=== PATIENT | male | born 1990 | race Caucasian/White ===

== ENCOUNTER 2017-03-15 13:35 | Outpatient (CLI) | payer BC ==
[~2017-03-15] VITALS: Ht 188 cm; Wt 154.9 kg
[~2017-03-15 13:35] MED LIST: ALBU17AE23 IH; FLUT1DIS27 IH; HYDR-3730 PO; LORA10CA PO; METH4TAB PO; SLMFT1E INH; SULF1TAB35 PO
[2017-03-15 13:41] VITALS: BP 138/80
== END 2017-03-15 13:47 | disposition home or self-care (01) ==
LOC: PREOP 13:35
PROVIDERS: ATTEND Surgery Pediatric Surgery
DX: Z01.818 Encounter for other preprocedural examination (principal); Z11.2 Encounter for screening for other bacterial diseases; L05.91 Pilonidal cyst without abscess
CPT/HCPCS: 87081

== ENCOUNTER 2017-03-18 09:53 | Day surgery (SDC) | payer BC ==
[~2017-03-18] VITALS: Ht 188 cm; Wt 154.9 kg
[2017-03-18] MEDS ORDERED: CATHETER FLUSH 10 ML SYR IV PRN (10:00)
[2017-03-18] MEDS ORDERED: ceFAZolin 3 GM/NS 50 ML IVPB IV ONE ×2 (10:00)
[2017-03-18 10:05] VITALS: BP 131/75
[2017-03-18] MEDS: LACTATED RINGERS 1,000 ML IV PRN ×2 (10:05→13:52)
--- NOTE | 2017-03-18 10:59 | Progress Note-Pre Operative ---
Pre-Operative Progress Note H&P Reviewed The H&P was reviewed, patient examined and no changes noted. Date H&P Reviewed: March 18, 2017 Time H&P Reviewed: 10:50 Pre-Operative Diagnosis: symptomatic pilonidal cyst FRANKY ROJAS MD March 18, 2017 10:59 am
[2017-03-18] MEDS ORDERED: morphine INJ 10 MG/ML 1ML (SYR OR VIAL) IVP PRN (11:00)
[2017-03-18] MEDS ORDERED: ACETAMINOPHEN 325 MG TABLET/CAPLET (TYLENOL) PO PRN (11:00)
[2017-03-18] MEDS ORDERED: HYDROcodone/APAP 5 MG/325 MG (LORTAB) TAB PO ONE (11:00)
[2017-03-18] MEDS ORDERED: ONDANSETRON 4 MG/2 ML (SDV) Z0FRAN IVP PRN ×2 (11:00→15:45)
[2017-03-18] MEDS ORDERED: SEVOFLURANE (ULTANE) 15 ML INHAL SOLN ONE ×5 (12:38→15:15)
[2017-03-18] MEDS ORDERED: proPOfol 200 MG/20 ML (DIPRIVAN) VIAL IV ONE (12:38)
[2017-03-18] MEDS ORDERED: ONDANSETRON 4 MG/2 ML (SDV) Z0FRAN ONE ×2 (12:38→15:12)
[2017-03-18] MEDS ORDERED: LIDOCAINE PF 2% 10 ML (XYLOCAINE) AMP ONE (12:38)
[2017-03-18] MEDS ORDERED: fentaNYL INJECTION 250 MCG/5 ML AMP ONE (12:38)
[2017-03-18] MEDS ORDERED: MIDAZOLAM 2 MG/2 ML (VERSED) VIAL ONE (12:38)
[2017-03-18] MEDS ORDERED: DEXAMETHASONE PF 10 MG/ML (DECADRON) VIAL ONE (12:38)
[2017-03-18] MEDS ORDERED: ROCURONIUM 50 MG/5 ML (ZEMURON) VIAL IV ONE (12:38)
[2017-03-18] MEDS ORDERED: LACTATED RINGERS 1,000 ML IV ONE ×2 (12:38→14:45)
[2017-03-18] MEDS ORDERED: BUP/EPI 0.5% 1:200,000 (SENSORCAINE) 30 ML VIAL ONE (12:53)
[2017-03-18] MEDS ORDERED: morphine INJ 10 MG/ML 1ML (SYR OR VIAL) ONE ×2 (14:42→15:12)
[2017-03-18] MEDS ORDERED: HYDROmorphone (DILAUDID) 2 MG/ML VIAL ONE (15:11)
[2017-03-18] MEDS ORDERED: MEPERIDINE (DEMEROL) INJ 50 MG/ML ONE (15:11)
[2017-03-18] MEDS ORDERED: KETOROLAC 30 MG/ML VIAL ONE (15:12)
[2017-03-18] MEDS: morphine INJ 10 MG/ML 1ML (SYR OR VIAL) IVP PRN ×2 (15:37→15:45)
--- NOTE | 2017-03-18 15:38 | Progress Note-Post Operative ---
Post-Operative Progess Note Surgeon (s)/Pit Shoveler (s) Surgeon FRANKY ROJAS MD Pit Shoveler: none Pre-Operative Diagnosis symptomatic recurrent pilonidal cyst Post-Operative Diagnosis same (15cm) Procedure & Operative Findings Date of Procedure 03/18/17 Procedure Preformed/Findings excision recurrent pilonidal cyst with intermediate closure. Anesthesia Type GET Estimated Blood Loss Estimated blood loss (mL): 200ml Specimens/Packing Specimens Removed pilonidal cyst Packing: none FRANKY ROJAS MD March 18, 2017 3:38 pm
[2017-03-18] MEDS ORDERED: LEVO750T9 PO (15:40)
[2017-03-18] MEDS ORDERED: HYDR-3730 PO (15:40)
--- NOTE | 2017-03-18 15:41 | Discharge Inst-Surgical ---
D/C Lap Instructions-CRYSTAL New, Converted, or Re-Newed RX: RX on Chart Follow Up Appt next wednesday Activity as tolerated No driving for 24 hours No driving while on pain medications Incentive Spirometry use every 2 hours while awake Regular Diet Symptoms to Report: Fever over 101 degree F, Nausea/Vomiting Infection Signs and Symptoms to report: Increased redness, Foul odor of wound, Increased drainage Bathing instructions: May shower Operative Area Clean/Dry; Keep incision clean/dry If any problems/questions: Contact your physician or go to Emergency Room FRANKY ROJAS MD March 18, 2017 3:41 pm
[2017-03-18] MEDS ORDERED: MEPERIDINE (DEMEROL) INJ 50 MG/ML IVP PRN (15:45)
[2017-03-18] MEDS ORDERED: HYDROmorphone (DILAUDID) 2 MG/ML VIAL IVP PRN (15:45)
[2017-03-18 16:30] VITALS: BP 170/97
[2017-03-18 17:00] VITALS: BP 155/81
[2017-03-18 17:30] VITALS: BP 150/80
[2017-03-18 17:35] VITALS: BP 150/80
--- NOTE | 2017-03-19 03:46 | OPERATIVE REPORT ---
DATE OF SERVICE: 03/18/2017 ATTENDING PRIMARY CARE PHYSICIAN: Dr. Maya Hopkins. PREOPERATIVE DIAGNOSIS: Recurrent symptomatic pilonidal cyst. POSTOPERATIVE DIAGNOSIS: Recurrent symptomatic pilonidal cyst. PROCEDURE: Excision, recurrent symptomatic pilonidal cyst with the dimensions of approximately 15 x 8 cm in size, with intermediate flap closure. SURGEON: Dr. Rojas. ANESTHESIA: General endotracheal. ESTIMATED BLOOD LOSS: 200 mL. FINDINGS: Recurrent pilonidal cyst with fluid with epidermal components within the hernia sac including hair. There was a scar tissue from his previous pilonidal excision as well. The entire dimensions of the excision were approximately 15 x 8 cm in size. DISPOSITION: The patient tolerated the procedure well. INDICATIONS: The patient is a 26-year-old male with recurrent symptomatic pilonidal cyst. In 04/2016, he had his initial assessment for symptomatic pilonidal cyst and underwent an excision of a large pilonidal cyst at that time. He is overweight and does have a significant amount of hair throughout his body. He also has a family history of pilonidal cyst. He underwent excision of the pilonidal cyst and states that he initially had done well; however, with his job, he does do a considerable amount of heavy lifting and exertion as well as sweating. In the past several months, he has noticed increased recurrence of pain and swelling as well as drainage in the overlying sacral region. There has also been redness, erythema as well as signs of infection, which was treated with antibiotics. Upon examination in the office, he did have recurrent multiple cyst tracts as well as pain, erythema as well as drainage. This was consistent with a recurrent pilonidal cyst. DESCRIPTION OF PROCEDURE: The patient was brought to the operating room, laid supine on the table. After adequate IV pain and sedative medications and general endotracheal intubation, the patient was placed in the prone position and the perineum, buttocks, and back were prepped and draped in standard surgical fashion. The sinus tracts were probed with lacrimal probes, which all focused into the central area deep overlying the sacral bone. The skin was then marked encompassing all sinus tracts as well. This area was then anesthetized using 0.5% Marcaine with epinephrine. An elliptical-shaped skin incision was then made using a 15 blade. We then proceeded with meticulous dissection of any sinus tracts or chronic inflammatory tissue segments using electrocautery, taking a large wedge of subcutaneous tissue to the level of the sacrum using electrocautery. The entire dimensions were approximately 15 x 8 cm in size. The specimen was sent to pathology. We then proceeded with getting good hemostasis with electrocautery. We then proceeded with bilateral subcutaneous flaps using electrocautery. This was reapproximated using 2-0 Vicryl interrupted sutures. Due to the body habitus of this individual and the size of the cavity, it was decided to place a 19-Tamazight Luis Miguel-Peterson drain within the cavity as well to bulb suction. This was placed and exited above the incision and sutured to the skin using 3-0 nylon suture. We then proceeded to close the subcutaneous tissue in 2 layers using 2-0 Vicryl interrupted sutures. The skin was closed using 3-0 Monocryl interrupted sutures. The wound was then covered with gauze followed by ABD pad. The patient tolerated the procedure well. We will start IV and oral pain medications as well as a clear liquid diet. Once he is tolerating clears and has good pain control with oral pain medications and ambulating well, we will discharge him home. We will follow up in approximately 1 week to evaluate and potentially remove the drain. Job ID: [id number] DocumentID: [id number] Dictated Date: 03/18/2017 15:46:38 Meteorology Instructor Date: 03/19/2017 02:11:21 Dictated By: FRANKY ROJAS MD
== END 2017-03-18 17:35 | disposition home or self-care (01) ==
LOC: SDC 09:53
PROVIDERS: ATTEND Surgery Pediatric Surgery
DX: L05.91 Pilonidal cyst without abscess (principal)